=== PATIENT | male | born 1950 | race Caucasian/White ===

== ENCOUNTER → 2018-04-02 | Outpatient (CLI) | payer MEDICARE ==
[~2018-04-02] MED LIST: LIDOCAINE 1% MDV 20ML VIAL As Ordered; LIDOCAINE 2% MDV 20 ML VIAL As Ordered
[2018-04-02 14:10] LABS: INR 0.97
[2018-04-02 14:11] LABS: PARTIAL THROMBOPLASTIN TIME 45.5 SECONDS (25.4-37.6)
== END ==
LOC: M RADPRO 12:41
DX: R59.0 Localized enlarged lymph nodes (principal); C77.4 Secondary and unspecified malignant neoplasm of inguinal and lower limb lymph nodes; C34.10 Malignant neoplasm of upper lobe, unspecified bronchus or lung; Z79.82 Long term (current) use of aspirin; Z79.899 Other long term (current) drug therapy
CPT/HCPCS: 38505

== ENCOUNTER → 2018-04-14 | Outpatient (REF) | payer MEDICARE ==
[2018-04-14 11:27] LABS: INR 1.14; PROTHROMBIN TIME 14.8 SECONDS (12.1-14.4)
[2018-04-14 11:28] LABS: PARTIAL THROMBOPLASTIN TIME 44.8 SECONDS (25.4-37.6)
== END ==
LOC: M LAB REF 10:49
DX: C34.91 Malignant neoplasm of unspecified part of right bronchus or lung (principal); Z79.01 Long term (current) use of anticoagulants
CPT/HCPCS: 85610

== ENCOUNTER → 2018-04-22 | Outpatient (CLI) | payer MEDICARE ==
[~2018-04-22] MED LIST changes: -LIDOCAINE 1% MDV 20ML VIAL As Ordered; +ceFAZolin 1GM INJ (J0690 PER 500MG) As Ordered
== END | disposition home or self-care (01) ==
LOC: M IRPRO 10:51
DX: C34.90 Malignant neoplasm of unspecified part of unspecified bronchus or lung (principal)
CPT/HCPCS: 36561

== ENCOUNTER 2018-06-15 12:47 | Outpatient (CLI) | payer MEDICARE ==
[2018-06-15] MEDS: ACETAMINOPHEN TAB 650MG DOSE (2X325MG) PO (15:29)
[2018-06-15] MEDS: diphenhydrAMINE 25 MG CAP PO (15:29)
[2018-06-15] MEDS ORDERED: SODIUM CHLORIDE 0.9% INJ 10 ML SYR IV (16:45)
[2018-06-15 18:38] LABS: IMMEDIATE SPIN CROSSMATCH 1 2
[2018-06-15] MEDS: SODIUM CHLORIDE 0.9% INJ 10 ML SYR IV (21:16)
== END 2018-06-15 21:21 | disposition home or self-care (01) ==
LOC: M OPCLI4PV 12:47 → M MSPAV 13:04 → M OPCLI4PV 21:21
DX: D64.9 Anemia, unspecified (principal); C34.90 Malignant neoplasm of unspecified part of unspecified bronchus or lung
CPT/HCPCS: 36430

== ENCOUNTER 2018-07-06 11:55 | Outpatient (CLI) | payer MEDICARE, MEDICAID ==
[~2018-07-06 11:55] MED LIST changes: -LIDOCAINE 2% MDV 20 ML VIAL As Ordered; +SODIUM CHLORIDE 0.9% INJ 10 ML SYR IV; -ceFAZolin 1GM INJ (J0690 PER 500MG) As Ordered
[2018-07-06] MEDS: diphenhydrAMINE 25 MG CAP PO (13:01)
[2018-07-06] MEDS: ACETAMINOPHEN TAB 650MG DOSE (2X325MG) PO (13:01)
== END 2018-07-06 17:20 | disposition home or self-care (01) ==
LOC: M INFU 11:55
DX: D64.9 Anemia, unspecified (principal)
CPT/HCPCS: 36430

== ENCOUNTER 2018-07-27 12:44 | Outpatient (CLI) | payer MEDICARE ==
[2018-07-27] MEDS: SODIUM CHLORIDE 0.9% INJ 10 ML SYR IV (09:00)
[2018-07-27] MEDS ORDERED: diphenhydrAMINE 25 MG CAP As Ordered (13:05)
[2018-07-27] MEDS ORDERED: ACETAMINOPHEN TAB 650MG DOSE (2X325MG) As Ordered (13:06)
[2018-07-27] MEDS: diphenhydrAMINE 25 MG CAP PO (13:22)
[2018-07-27] MEDS: ACETAMINOPHEN TAB 650MG DOSE (2X325MG) PO (13:22)
== END 2018-07-27 17:15 | disposition home or self-care (01) ==
LOC: M INFU 12:44
DX: D64.9 Anemia, unspecified (principal)
CPT/HCPCS: 36430

== ENCOUNTER → 2018-08-17 | Outpatient (CLI) | payer MEDICAID, MEDICARE ==
[~2018-08-17] MED LIST changes: +ALBU83IN NEB; +AMLO10TA4 PO; +ASPI81TA85 PO; +BISO5TAB2 PO; +BISO5TAB5 PO; +FISH120016 PO; +FURO20TA2 PO; +LISI40TAB PO; +RANI1TAB6 PO; +SIMV20TA2 PO; +SODI1TAB6 PO; -SODIUM CHLORIDE 0.9% INJ 10 ML SYR IV; +VENTAER INH
--- NOTE | 2018-08-17 19:51 | REP ---
PET/CT: History: Restaging lung cancer. The patient has a history of metastatic small cell carcinoma with liver, bilateral adrenal, retroperitoneal, mesenteric and mediastinal lymphadenopathy with positive left inguinal lymph node biopsy. Soft tissue masses in the right middle and right lower lobes of the lungs. The patient on chemotherapy. Comparisons: Comparison CT chest March 27, 2018. No comparison PET-CT. TECHNIQUE: 57 minutes following the intravenous injection of a 7.9 mCi dose of F-18 FDG, three-dimensional PET scintigraphy is acquired from the skull base to the proximal thighs. Triplanar noncontrast CT scanning is acquired through the same anatomic range for attenuation correction, and image registration with scan parameters optimized to minimize radiation exposure to the patient. PET scintigraphy and CT datasets were fused and displayed on a workstation with multiplanar and projection display capability. PET/CT Findings: There is a hypermetabolic peribronchovascular nodule in the right lower lobe of the lung measuring 1.5 cm in diameter. Maximum standard uptake value in this is 10.1. There is some hypermetabolic pulmonary parenchymal opacity in the right lower lobe below this in the posterior lung gutter with maximum standard uptake value up to 6.4 in an infiltrative pattern, which may be postobstructive change. The right lung base is significantly improved. The bulky right hilar and mediastinal lymphadenopathy is markedly improved as well. No other abnormal hypermetabolic uptake is seen within the chest. There is some normal variant paraspinal skeletal muscle uptake. Some linear uptake in esophageal mucosa which is felt to be normal. There is slightly increased uptake in a residual cavitary nodule in the right upper lobe with maximum standard uptake value 2.0. This measures 1.7 cm. There is no abnormal hypermetabolic uptake in the adrenals. The previously noted adrenal nodules have improved. The masses in the pararenal fat are much improved and no longer hypermetabolic. No hypermetabolic peritoneal implant or inguinal crystal implant is seen. Impression: The associated CT findings are dramatically improved. There is residual hypermetabolic uptake in an infrahilar nodule in the right lower lobe and in some possibly postobstructive parenchymal opacity in the right posterior lung gutter. Borderline uptake is seen in a cavitary lesion in the right upper lobe. No other hypermetabolic uptake seen. Electronically Signed by Ariel Tavarez MD 08/17/2018 07:58 P
== END ==
LOC: M PLARAD 15:33
PROVIDERS: ATTEND Internal Medicine Medical Oncology
DX: C34.91 Malignant neoplasm of unspecified part of right bronchus or lung (principal)
CPT/HCPCS: 78815; A9552

== ENCOUNTER 2018-09-27 08:57 | Outpatient (RCR) | payer MEDICARE ==
[2018-06-15 09:21] LABS: HEMATOCRIT 21.7 % (37.0-51.0); LYMPH % 11.8 % (10.0-58.5); MEAN CORPUSCULAR HEMOGLOBIN 29.2 pg (26.0-32.0); MEAN CORPUSCULAR HGB CONC 32.3 g/dl (31.0-36.0); MEAN CORPUSCULAR VOLUME 90.3 fl (80.0-97.0); NEUTROPHILS # 11.8 10^3/uL (2.0-7.8); NEUTROPHILS % 77.8 % (37.0-92.0); RED BLOOD COUNT 2.4 10^6/uL (4.2-6.3); WHITE BLOOD COUNT 15.2 10^3/uL (4.1-10.9)
[2018-06-15 09:42] LABS: ALBUMIN 3.8 GM/DL (3.5-5.2); BLOOD UREA NITROGEN 21 MG/DL (6-20); CALCIUM LEVEL 7.7 MG/DL (8.5-10.2); CARBON DIOXIDE LEVEL 26.6 MEQ/L (23-31); CHLORIDE LEVEL 97 MMOL/L (98-107); CREATININE FOR GFR 1.46 MG/DL (0.90-1.30); GLOMERULAR FILTRATION RATE 51.3 (>49); GLUCOSE, FASTING 123 MG/DL (70-105); POTASSIUM SERUM 3.4 MMOL/L (3.5-5.1); SODIUM LEVEL 133.7 MMOL/L (136-145); TOTAL PROTEIN 7.2 GM/DL (6.4-8.3)
[2018-06-15 09:47] VITALS: BP 96/68
[2018-06-16 08:35] VITALS: BP 133/71
[2018-06-16 09:50] LABS: PERCENT SATURATION 25.3 % (19.7-50.0)
--- NOTE | 2018-06-16 16:15 | MEDONC ---
REVIEW PATIENT FOLLOWUP DATE OF SERVICE: 06/15/2018 DIAGNOSIS: Extensive stage small cell lung cancer. TREATMENT SUMMARY: 1. Metastatic small cell carcinoma on a left inguinal lymph node biopsy 03/[address] scan 02/2018 showing liver metastases, bilateral adrenal gland metastases, retroperitoneal lymphadenopathy, and mesenteric lymphadenopathy as well as mediastinal lymphadenopathy, and soft tissue masses in the right middle and right lower lung lobes. Started palliative carboplatin/etoposide chemotherapy 03/2018. 2. CT scan from 05/2018 showing a positive response. HISTORY OF PRESENT ILLNESS: Mr. Trevino has so far completed three cycles of carboplatin/etoposide chemotherapy today. He reports that he has been feeling slightly tired lately. However, he has had a good appetite. His weight has been going up and down, but mostly stable. No fevers. No night sweats. No headaches. No dizziness. No vision changes. No chest pain. No shortness of breath. No cough. No nausea. No vomiting. No abdominal pains. No bone pains. No diarrhea. He has had constipation after chemotherapy for which he uses a stool softener. He has had mild easy bruising likely secondary to aspirin use. He reports no rectal bleeding. No black stools. No urinary bleeding. No nose bleeds. No mucositis and no significant lower extremity edema. On physical exam, he weighed 94.9 kg. His blood pressure was slightly low at 96/68. Heart rate 99 per minute. O2 saturation 98% on room air. Temperature 98 degrees Fahrenheit. He had pinkish conjunctivae, anicteric sclera. No oral mucosal lesions. No palpable cervical nodes. Lungs were clear. No rales, no rhonchi, no wheeze. S1, S2 regular. Abdomen was soft, nontender. No guarding. Positive bowel sounds. Extremities - no calf swelling, no calf tenderness, and no pedal edema. IMPRESSION AND PLAN: Mr. Trevino's CBC today came back with a significantly low hemoglobin level of 7 g/dL. I recommended a blood transfusion to which he agreed. We will also obtain iron studies. I discussed that his hypotension may be related to anemia. I have advised him to hold off on furosemide. He is to return tomorrow for his cycle #4 of carboplatin/etoposide chemotherapy. I have advised him to hold amlodipine and lisinopril in the morning. We will check his blood pressure tomorrow morning and may hold amlodipine and lisinopril if his blood pressure continues to be on the low side. In the meantime, he will be scheduled for cycle #4 tomorrow until Thursday and cycle #5 in three weeks. I discussed with Mr. Trevino and his that his most recent imaging studies showed a positive response to chemotherapy and he will therefore continue with chemotherapy. We would aim to give him a total of 6 cycles of chemotherapy. Electronically Signed by Chantale Gamez MD, FACP 06/16/2018 06:32 P DD: Chantale Gamez MD, FACP 06/15/2018 06:26 P DT: maritime guard 06/16/2018 03:58 P CC: Helio Mark MD
[2018-06-17 08:18] VITALS: BP 111/64
[2018-06-18 08:10] VITALS: BP 99/62
[2018-06-18] MEDS: SODIUM CHLORIDE 0.9% INJ 10 ML SYR IV PRN (10:33)
[2018-07-05 12:45] VITALS: BP 99/66
[2018-07-05 13:07] LABS: HEMATOCRIT 22.3 % (37.0-51.0); HEMOGLOBIN 7.3 g/dl (12.0-18.0); LYMPH % 14.2 % (10.0-58.5); MEAN CORPUSCULAR HEMOGLOBIN 31.2 pg (26.0-32.0); MEAN CORPUSCULAR HGB CONC 32.7 g/dl (31.0-36.0); MEAN CORPUSCULAR VOLUME 95.5 fl (80.0-97.0); NEUTROPHILS # 11.2 10^3/uL (2.0-7.8); NEUTROPHILS % 77.9 % (37.0-92.0); RED BLOOD COUNT 2.34 10^6/uL (4.2-6.3); WHITE BLOOD COUNT 14.4 10^3/uL (4.1-10.9)
[2018-07-05 13:15] LABS: ALBUMIN 3.9 GM/DL (3.5-5.2); BLOOD UREA NITROGEN 18 MG/DL (6-20); CALCIUM LEVEL 7.9 MG/DL (8.5-10.2); CARBON DIOXIDE LEVEL 26 MEQ/L (23-31); CHLORIDE LEVEL 100 MMOL/L (98-107); CREATININE FOR GFR 1.36 MG/DL (0.90-1.30); GLOMERULAR FILTRATION RATE 55.6 (>49); GLUCOSE, FASTING 129 MG/DL (70-105); POTASSIUM SERUM 3.6 MMOL/L (3.5-5.1); SODIUM LEVEL 135 MMOL/L (136-145)
[2018-07-05] MEDS: SODIUM CHLORIDE 0.9% INJ 10 ML SYR IV PRN (13:54)
[2018-07-05 14:44] LABS: PERCENT SATURATION 30.6 % (19.7-50.0)
[2018-07-07 08:39] LABS: HEMATOCRIT 29.4 % (37.0-51.0); HEMOGLOBIN 9.6 g/dl (12.0-18.0); LYMPH % 14.5 % (10.0-58.5); MEAN CORPUSCULAR HEMOGLOBIN 31.1 pg (26.0-32.0); MEAN CORPUSCULAR HGB CONC 32.7 g/dl (31.0-36.0); MEAN CORPUSCULAR VOLUME 95.2 fl (80.0-97.0); NEUTROPHILS # 9.4 10^3/uL (2.0-7.8); NEUTROPHILS % 76.7 % (37.0-92.0); RED BLOOD COUNT 3.09 10^6/uL (4.2-6.3); WHITE BLOOD COUNT 12.3 10^3/uL (4.1-10.9)
[2018-07-07 08:50] VITALS: BP 113/72
--- NOTE | 2018-07-07 11:00 | MEDONC ---
REVIEW PATIENT FOLLOWUP DATE OF SERVICE: 07/05/2018 DIAGNOSIS: Extensive stage small cell lung cancer. TREATMENT SUMMARY: 1. Metastatic small cell carcinoma on a left inguinal lymph node biopsy 03/[address] scan 02/2018 showing liver metastases, bilateral adrenal gland metastases, retroperitoneal lymphadenopathy, and mesenteric lymphadenopathy as well as mediastinal lymphadenopathy, and soft tissue masses in the right middle and right lower lung lobes. Started palliative carboplatin/etoposide chemotherapy 03/2018. 2. CT scan from 05/2018 showing a positive response. HISTORY OF PRESENT ILLNESS: Mr. Trevino has so far received three cycles of carboplatin/etoposide chemotherapy and is scheduled to receive his fourth cycle today. He reports a good appetite. He has been gaining weight. No fevers. No night sweats. He had an improvement in his energy levels following a blood transfusion 3 weeks ago and so far his energy levels have stayed up and he did not feel significantly tired today. No headaches. No dizziness. No vision changes. No chest pain. No shortness of breath. He reports a cough with clear phlegm and he also reports that he has had slight mild cold symptoms today with his nose running. He has had no nausea. No vomiting. No abdominal pains. No bone pains. No diarrhea. He has had constipation for which he uses MiraLAX which has been helpful. No urinary problems. No easy bruising. No rectal bleeding. No urinary bleeding. No nose bleeds. No mucositis and no edema. On physical exam, blood pressure 99/66. Pulse oxymetry 98% on room air. Temperature 96.4. Heart rate 95 per minute. He had pinkish conjunctivae, anicteric sclerae. No oral mucosal lesions. No palpable cervical nodes. No oral mucositis. Lungs were clear. No rales, rhonchi, or wheeze. S1, S2 regular. No murmur. No gallop. Abdomen was soft, nontender. No guarding. No hepatosplenomegaly. Positive bowel sounds. Extremities-No calf swelling, no calf tenderness, and no pedal edema. IMPRESSION AND PLAN: Mr. Trevino was scheduled for his fourth cycle of chemotherapy today, but his CBC showed a significantly low hemoglobin level of 7.3 g/dL. We will arrange for him to have a blood transfusion tomorrow with a plan to have his chemotherapy on Thursday. We did obtain work-up for anemia, with iron studies showed normal iron indices. He had a mild reticulocytosis at 3.3%, but otherwise no other significant issues. He had a negative antibody screen. On his next visit we will obtain a haptoglobin level. Since he has significant anemia I will be decreasing his chemotherapy dose as the anemia could be from chemotherapy. We had initially planned for him to have blood transfusion with Dr. Mark in [place], but in the end Mr. Trevino decided to have his blood transfusion in [facility] and we have arranged for him to receive this tomorrow. He will be scheduled to receive his sixth cycle of chemotherapy in 3 weeks with a followup CT scan after the sixth cycle of chemotherapy. Electronically Signed by Chantale Gamez MD, FACP 07/09/2018 04:23 P DD: Chantale Gamez MD, FACP 07/05/2018 06:50 P DT: will 07/07/2018 10:23 A CC: MD Jennifer Fofana, EKTA
[2018-07-07] MEDS: SODIUM CHLORIDE 0.9% INJ 10 ML SYR IV PRN (12:15)
[2018-07-08 13:16] VITALS: BP 129/72
[2018-07-08] MEDS: SODIUM CHLORIDE 0.9% INJ 10 ML SYR IV PRN (15:07)
[2018-07-09] MEDS: SODIUM CHLORIDE 0.9% INJ 10 ML SYR IV PRN (14:50)
[2018-07-26 08:19] LABS: HEMATOCRIT 24.1 % (37.0-51.0); HEMOGLOBIN 7.9 g/dl (12.0-18.0); LYMPH % 10.5 % (10.0-58.5); MEAN CORPUSCULAR HEMOGLOBIN 32.4 pg (26.0-32.0); MEAN CORPUSCULAR HGB CONC 32.8 g/dl (31.0-36.0); MEAN CORPUSCULAR VOLUME 98.8 fl (80.0-97.0); NEUTROPHILS # 18.8 10^3/uL (2.0-7.8); NEUTROPHILS % 81.3 % (37.0-92.0); RED BLOOD COUNT 2.44 10^6/uL (4.2-6.3); WHITE BLOOD COUNT 23.1 10^3/uL (4.1-10.9)
[2018-07-26 08:38] LABS: ALBUMIN 3.9 GM/DL (3.5-5.2); BLOOD UREA NITROGEN 25 MG/DL (6-20); CALCIUM LEVEL 8.3 MG/DL (8.5-10.2); CARBON DIOXIDE LEVEL 24 MEQ/L (23-31); CHLORIDE LEVEL 99 MMOL/L (98-107); CREATININE FOR GFR 1.58 MG/DL (0.90-1.30); GLOMERULAR FILTRATION RATE 46.8 (>49); GLUCOSE, FASTING 125 MG/DL (70-105); POTASSIUM SERUM 3.8 MMOL/L (3.5-5.1); SODIUM LEVEL 133 MMOL/L (136-145); TOTAL PROTEIN 7.1 GM/DL (6.4-8.3)
[2018-07-26 08:49] VITALS: BP 96/65
[2018-07-26 10:32] LABS: TOTAL PROTEIN 7.3 GM/DL (6.4-8.2)
--- NOTE | 2018-07-27 09:43 | MEDONC ---
REVIEW PATIENT FOLLOWUP DATE OF SERVICE: 07/26/2018 DIAGNOSIS: Extensive stage small cell lung cancer. TREATMENT SUMMARY: 1. Metastatic small cell carcinoma on a left inguinal lymph node biopsy 03/[address] scan 02/2018 showing liver metastases, bilateral adrenal gland metastases, retroperitoneal lymphadenopathy, and mesenteric lymphadenopathy as well as mediastinal lymphadenopathy, and soft tissue masses in the right middle and right lower lung lobes. Started palliative carboplatin/etoposide chemotherapy 03/2018. 2. CT scan from 05/2018 showing a positive response. HISTORY OF PRESENT ILLNESS: Mr. Trevino reports feeling reasonably well. He reports a good appetite. His weight has been stable. No fevers. He has a slight cold with some cough. No shortness of breath. No headaches. No dizziness. No vision changes. No chest pain. He has been slightly tired but not too tired. He also has had a cough with mild phlegm. No nausea. No vomiting. No abdominal pains. No bone pains. He has constipation, for which he takes MiraLAX. Subsequent to taking MiraLAX, he sometimes develops loose stools, but this usually is only of one episode and with no further episodes. No urinary problems. No easy bruising. No rectal bleeding. No nosebleeds. No black stools. No mucositis and no peripheral edema. On physical exam, temperature 97.4. Blood pressure 96/65. Heart rate 99 per minute. O2 saturation 99% in room air. He had pinkish conjunctivae, anicteric sclerae. No oral mucosal lesions. No palpable cervical lymph nodes. Lungs fair entry. No rales, no rhonchi, no wheeze. S1, S2 regular. No murmur. No gallop. Abdomen was soft, nontender. No guarding. Extremities -- No calf swelling, no calf tenderness, and no pedal edema. IMPRESSION AND PLAN: Mr. Trevino is scheduled for his sixth cycle of chemotherapy on Thursday. His CBC today came back with significant anemia, hemoglobin level 7.9. I recommended a blood transfusion, as this will likely go down further with chemotherapy. We have added anemia workup testing to his blood test today. A haptoglobin, as well as soluble transferrin receptor test, is pending as of this time. He is scheduled for a followup CT scan after completing the sixth cycle of chemotherapy. Followup appointment after CT scan. Electronically Signed by Chantale Gamez MD, FACP 08/15/2018 02:52 P DD: Chantale Gamez MD, FACP 07/26/2018 06:11 P DT: aml 07/27/2018 09:34 A CC: Helio Mark MD
[2018-07-27 10:20] LABS: ALBUMIN 3.71 GM/DL (3.29-5.55); ALBUMIN % 50.8 % (55.8-66.1); ALPHA-1-GLOBULIN % 6.6 % (2.9-4.9); ALPHA-1-GLOBULINS 0.48 GM/DL (0.17-0.41); ALPHA-2-GLOBULINS % 15.1 % (7.1-11.8); BETA-1-GLOBULINS 0.47 GM/DL (0.28-0.60); BETA-1-GLOBULINS % 6.4 % (4.7-7.2); BETA-2-GLOBULINS 0.49 GM/DL (0.19-0.55); BETA-2-GLOBULINS % 6.7 % (3.2-6.5); GAMMA GLOBULIN % 14.4 % (11.1-18.8)
[2018-07-27 10:21] LABS: GAMMA GLOBULINS 1.05 GM/DL (0.65-1.58)
[2018-07-28 00:50] LABS: SOLUBLE TRANSFERRIN RECEPTOR 12.3 nmol/L (12.2-27.3)
[2018-08-04 08:39] LABS: HEMOGLOBIN 8.8 g/dl (12.0-18.0); LYMPH % 13.9 % (10.0-58.5); MEAN CORPUSCULAR HEMOGLOBIN 31.9 pg (26.0-32.0); MEAN CORPUSCULAR HGB CONC 32.6 g/dl (31.0-36.0); MEAN CORPUSCULAR VOLUME 97.8 fl (80.0-97.0); NEUTROPHILS # 8.4 10^3/uL (2.0-7.8); NEUTROPHILS % 72.5 % (37.0-92.0); RED BLOOD COUNT 2.76 10^6/uL (4.2-6.3); WHITE BLOOD COUNT 11.6 10^3/uL (4.1-10.9)
[2018-08-04 08:59] VITALS: BP 91/56
[2018-08-04 09:00] LABS: ALBUMIN 3.4 GM/DL (3.5-5.2); BLOOD UREA NITROGEN 17 MG/DL (6-20); CALCIUM LEVEL 8.6 MG/DL (8.5-10.2); CARBON DIOXIDE LEVEL 25 MEQ/L (23-31); CHLORIDE LEVEL 95 MMOL/L (98-107); CREATININE FOR GFR 1.24 MG/DL (0.90-1.30); GLOMERULAR FILTRATION RATE > 60.0 (>49); GLUCOSE, FASTING 121 MG/DL (70-105); POTASSIUM SERUM 3.5 MMOL/L (3.5-5.1); SODIUM LEVEL 128 MMOL/L (136-145); TOTAL PROTEIN 7.3 GM/DL (6.4-8.3)
[2018-08-04] MEDS: PALONOSETRON 250 MCG IV IV ONE ×2 (09:25→09:44)
[2018-08-04] MEDS: dexameTHASONE 12 MG IV IV ONE ×2 (09:25→09:44)
[2018-08-06 13:12] VITALS: BP 107/58
[2018-08-09 13:47] VITALS: BP 105/65
[2018-08-09 14:07] LABS: HEMOGLOBIN 9.6 g/dl (12.0-18.0); LYMPH % 23.2 % (10.0-58.5); MEAN CORPUSCULAR HEMOGLOBIN 31.5 pg (26.0-32.0); MEAN CORPUSCULAR VOLUME 98.2 fl (80.0-97.0); NEUTROPHILS % 73.2 % (37.0-92.0); RED BLOOD COUNT 3.05 10^6/uL (4.2-6.3); WHITE BLOOD COUNT 6.8 10^3/uL (4.1-10.9)
[2018-08-09 14:15] LABS: ALBUMIN 3.8 GM/DL (3.5-5.2); BLOOD UREA NITROGEN 27 MG/DL (6-20); CARBON DIOXIDE LEVEL 25 MEQ/L (23-31); CHLORIDE LEVEL 97 MMOL/L (98-107); CREATININE FOR GFR 1.18 MG/DL (0.90-1.30); GLOMERULAR FILTRATION RATE > 60.0 (>49); GLUCOSE, FASTING 113 MG/DL (70-105); POTASSIUM SERUM 4.2 MMOL/L (3.5-5.1); SODIUM LEVEL 130 MMOL/L (136-145); TOTAL PROTEIN 7.4 GM/DL (6.4-8.3)
[2018-08-10 13:58] VITALS: BP 106/73
--- NOTE | 2018-08-11 13:20 | MEDONC ---
REVIEW PATIENT FOLLOWUP DATE OF SERVICE: 08/10/2018 DIAGNOSIS: Extensive stage small cell lung cancer. TREATMENT SUMMARY: 1. Metastatic small cell carcinoma on a left inguinal lymph node biopsy 03/[address] scan 02/2018 showing liver metastases, bilateral adrenal gland metastases, retroperitoneal lymphadenopathy, and mesenteric lymphadenopathy as well as mediastinal lymphadenopathy, and soft tissue masses in the right middle and right lower lung lobes. Started palliative carboplatin/etoposide chemotherapy 03/2018. 2. CT scan from 05/2018 showing a positive response. HISTORY OF PRESENT ILLNESS: Mr. Trevino completed the sixth cycle of carboplatin/etoposide chemotherapy for metastatic small cell lung cancer yesterday. He reports a good appetite. He has had alopecia since starting chemotherapy. He reports no fevers. He has been slightly tired lately, but not unduly so. No headaches. No dizziness. No changes in his eyesight. No chest pain. No shortness of breath. No nausea. No vomiting. No abdominal pains. No bone pains. He reports that once in a while with chemotherapy, he has diarrhea. His last episode happened last week when he had two episodes of diarrhea a day lasting two days. He uses Kaopectate for diarrhea. He reports that he has had nasal congestion and cough with clear phlegm. No hemoptysis. He has been taking Coricidin for his cough and cold, and he has been feeling better with this. He reports that he is ambulatory with a cane and has been using a cane since he was first diagnosed with lung cancer. No rectal bleeding. No epistaxis. No mucositis. No peripheral edema. On physical exam, he weighed 92.4 kg. Temperature 96.9 degrees Fahrenheit. Heart rate 86 per minute. Blood pressure 106/73. Oxygen saturation 99% on room air. He had pinkish conjunctiva, anicteric sclerae. No oral mucosal lesions. No palpable cervical lymph nodes. Lungs fair air entry. No rales, no rhonchi, no wheeze. S1 and S2 regular. Abdomen was soft, nontender. No guarding. Extremities - no calf swelling, no calf tenderness, and no pedal edema. IMPRESSION/PLAN: Mr. Trevino completed first line treatment with carboplatin/etoposide chemotherapy for small cell lung cancer. He had a CT scan last week which showed a right lower lobe mass versus consolidation. This also showed an increase in the size of a left adrenal lesion. However, a left sided pleural effusion had further decreased in size and mediastinum soft tissue density thickening had also decreased. I discussed these results with him. It is unclear whether or not he is progressing versus improving in terms of his metastatic lung cancer. I suggested a PET scan to assess disease progression objectively. If this should show disease progression, we will start him on second line treatment. I discussed that options for second line treatment include topotecan chemotherapy or immunotherapy with nivolumab. He has agreed to go for a PET scan and we will see him after the PET scan. Electronically Signed by Chantale Gamez MD, FACP 08/15/2018 03:01 P DD: Chantale Gamez MD, FACP 08/10/2018 05:32 P DT: madai 08/11/2018 12:58 P CC: Helio Mark MD
[2018-08-30 09:56] VITALS: BP 108/71
[2018-08-30 10:09] LABS: HEMATOCRIT 26.9 % (42.0-52.0); HEMOGLOBIN 8.7 g/dl (13.5-17.5); LYMPH % 26.2 % (24.0-44.0); MEAN CORPUSCULAR HEMOGLOBIN 33.2 pg (27.0-33.0); MEAN CORPUSCULAR HGB CONC 32.3 g/dl (32.0-36.5); MEAN CORPUSCULAR VOLUME 102.6 fl (80.0-96.0); NEUTROPHILS # 4.1 10^3/uL (1.8-7.7); NEUTROPHILS % 64.3 % (36.0-66.0); RED BLOOD COUNT 2.62 10^6/uL (4.30-6.10); WHITE BLOOD COUNT 6.3 10^3/uL (4.0-10.0)
[2018-08-30 10:51] LABS: BLOOD UREA NITROGEN 24 MG/DL (6-20); CALCIUM LEVEL 8.5 MG/DL (8.5-10.2); CARBON DIOXIDE LEVEL 24 MEQ/L (23-31); CHLORIDE LEVEL 99 MMOL/L (98-107); CREATININE FOR GFR 1.29 MG/DL (0.90-1.30); GLOMERULAR FILTRATION RATE 59.1 (>49); GLUCOSE, FASTING 111 MG/DL (70-105); POTASSIUM SERUM 3.7 MMOL/L (3.5-5.1); SODIUM LEVEL 133 MMOL/L (136-145); TOTAL PROTEIN 7.3 GM/DL (6.4-8.3)
[2018-08-30 11:03] LABS: FREE T4 0.97 NG/DL (0.76-1.46); THYROID STIMULATING HORMONE 0.851 uIU/ML (0.358-3.740)
--- NOTE | 2018-09-01 14:36 | MEDONC ---
REVIEW PATIENT FOLLOWUP: DATE OF SERVICE: 08/30/2018 DIAGNOSIS: Extensive stage small cell lung cancer. TREATMENT SUMMARY: 1. Metastatic small cell carcinoma on a left inguinal lymph node biopsy 03/[address] scan 02/2018 showing liver metastases, bilateral adrenal gland metastases, retroperitoneal lymphadenopathy, and mesenteric lymphadenopathy as well as mediastinal lymphadenopathy, and soft tissue masses in the right middle and right lower lung lobes. Started palliative carboplatin/etoposide chemotherapy 03/2018. 2. CT scan from 05/2018 showed a positive response. HISTORY OF PRESENT ILLNESS: Mr. Trevino reports a good appetite. He has been gaining weight. He has had good energy levels. No headaches. No dizziness. He is currently suffering from cold symptoms with nasal congestion and cough with clear phlegm. No hemoptysis. No fevers. Otherwise, he reported no other symptoms. On physical exam, he weigh 97.1 kg. Temperature 97 degrees Fahrenheit. Heart rate 76 per minute. Blood pressure 108/71. Pulse oximetry 98% in room air. He had pinkish conjunctivae, anicteric sclerae. No oral mucosal lesions. No palpable cervical lymph nodes. Lungs with fair air entry. No rales, rhonchi, or wheeze. S1, S2 regular. Abdomen was soft, nontender. Extremities - no calf swelling, no calf tenderness, and no pedal edema. IMPRESSION AND PLAN: Mr. Trevino had a PET scan recently to assess for disease progression. This showed significant improvement in his chest findings. Specifically, the PET scan showed dramatic improvement with residual hypermetabolic uptake in an infrahilar nodule in the right lower lobe measuring 1.5 cm in diameter. There was also note of a lung opacity in the right posterior lung possibly post obstructive. I discussed these results with Mr. Trevino and his . I discussed that since the PET scan did not show significant disease progression, but did show a significant improvement in this chest findings, it would be reasonable for him to take a break from chemotherapy. He has agreed to this. Will arrange for him to have a followup CT scan in [address] scan should show disease progression, he should be considered for second line treatment such as with nivolumab immunotherapy or topotecan chemotherapy. Electronically Signed by Chantale Gamez MD, FACP 09/01/2018 02:51 P DD: Chantale Gamez MD, FACP 08/30/2018 04:38 P DT: justice 09/01/2018 02:27 P CC: Helio Mark MD
[~2018-09-27] VITALS: Ht 172.7 cm; Wt 95.1 kg
[~2018-09-27 08:57] MED LIST changes: -AMLO10TA4 PO; +AMLO10TA5 PO; +ETOPOSIDE IV ONE; +FOSAPREPITANT PERIPHERAL LINE 30 MIN INFUSION (PREMIX) IV ONE; +FOSAPREPITANT PERIPHERAL LINE 30 MIN INFUSION IV ONE; +LISI40TA PO; -LISI40TAB PO; +NS IV ONE; +PALONOSETRON 250 MCG IV IV ONE; +PEGFILGRASTIM 6MG/0.6ML ONPRO KIT (J2505 PER 6MG) (FOR ONCOLOGY) SC ONE; +PROCHLORPERAZINE 5 MG TAB (S0183) PO ONE; +SODIUM CHLORIDE 0.9% INJ 10 ML SYR IV PRN; +SODIUM CHLORIDE 0.9% INJ 10 ML SYR IV SCH; +[UNRECOGNIZED DRUG - OTHER] IV ONE; +[UNRECOGNIZED DRUG - OTHER] IV ONE; +dexameTHASONE 12 MG IV IV ONE
[2018-09-28] MEDS ORDERED: FURO20TA2 PO (12:26)
--- NOTE | 2018-10-18 17:15 | MEDONCTEEN ---
Telephone Encounter Patient's called VIET Wheatley this morning that Mr. Trevino had to be taken to the ER Thursday for dehydration and they did a CT Brain, she will bring in the disc. Ms Wheatley told , if patient gets weak again to bring him here for IV fluids. Will ask Ms Wheatley to obtain the report on the CT Brain done at the Outside Facility, [facility], does the patient have brain mets? He has been off chemo since early August, and should not be getting dehydrated unless there is something else going on. (Ryan NEW) [facility]. CC: Aisha Wheatley. JESSICA FUENTES MD Oct 18, 2018 17:15
--- NOTE | 2018-10-19 17:36 | MEDONCTEEN ---
Date/Time of Encounter Date of Encounter: Oct 19, 2018 Telephone Encounter Patient's had called yesterday that patient was very weak and they had taken him to [facility] and they did a brain CT and she would drop off the Disc for our radiologists to read and would we call her back. A few days ago Chemo RNs had said patient was off balance and as a sidewalk concult asked me what to do. i have never met Mr. Trevino, one of the other physi cians cares for him, who is not here, so i suggested MRI Brain and a PET MARK. Today called again saying what did we think of the CT head from [facility], since she and the 4 children were leaning towards Hospice. Asked for the report again on the CT, then was told, Radiologist would not read it without an order, hence quickly signed an order for it to be read. Afternoon came, no report, closing time came, no report, waited till 5:15 pm, Mrs. Bowen personally walked over twice to Radiology to get it read. Spoke to Manny at ext. [phone], still nothing. So finally asked Shyanne front desl Staff to call [facility] Radiology and get their report on the head CT which they promptly FAXed over. Called the , went over the CT head report, explained that Small cell lung cancer responds well to Radiation and chemo. Even whole brain mets can respond to WBRT. We would add steroids to prevent swelling on the Brain and since the thought patient was also acting confused, would add KEPPRA in case patient was having seizures. Also explained that if the patient was confused then she as the caregiver and medical POA would have to make major health decisions. SUggested that at least bring patient over to the Office tomorrow and we will evaluate him, offered IV Fluids, since patient has not been eating or drinking and we would respect whatever decision she made. said she would try to bring him and she would run all of this by her 4 kids and then let us know. We will give a "heads up" to Ms Aisha Wheatley that patient may come tomorrow and will probably require labs and IV fluids. Ryan NEW. ([facility].) JESSICA FUENTES MD Oct 19, 2018 17:36
== END 2018-09-27 09:24 | disposition home or self-care (01) ==
LOC: M ONCM 08:57
PROVIDERS: ATTEND Internal Medicine Hematology & Oncology
DX: C34.91 Malignant neoplasm of unspecified part of right bronchus or lung (principal); C77.4 Secondary and unspecified malignant neoplasm of inguinal and lower limb lymph nodes; D61.810 Antineoplastic chemotherapy induced pancytopenia; Z79.899 Other long term (current) drug therapy; D64.9 Anemia, unspecified
CPT/HCPCS: 36415; 36591; 80053; 82728; 83010; 83520; 83550; 83615; 84165; 84439; 84443; 85027; 85046; 86850; 86900; 86901; 86920; 96367; 96375; 96377; 96413; 96417; 96523; G0463; J1100; J1453; J1642; J2469; J2505; J9045; J9181; P9016

== ENCOUNTER → 2018-10-19 | Outpatient (CLI) | payer MEDICARE ==
[~2018-10-19] MED LIST changes: -ETOPOSIDE IV ONE; -FOSAPREPITANT PERIPHERAL LINE 30 MIN INFUSION (PREMIX) IV ONE; -FOSAPREPITANT PERIPHERAL LINE 30 MIN INFUSION IV ONE; -NS IV ONE; -PALONOSETRON 250 MCG IV IV ONE; -PEGFILGRASTIM 6MG/0.6ML ONPRO KIT (J2505 PER 6MG) (FOR ONCOLOGY) SC ONE; -PROCHLORPERAZINE 5 MG TAB (S0183) PO ONE; -SODIUM CHLORIDE 0.9% INJ 10 ML SYR IV PRN; -SODIUM CHLORIDE 0.9% INJ 10 ML SYR IV SCH; -[UNRECOGNIZED DRUG - OTHER] IV ONE; -[UNRECOGNIZED DRUG - OTHER] IV ONE; -dexameTHASONE 12 MG IV IV ONE
--- NOTE | 2018-10-20 15:08 | REP ---
CT of the brain without IV contrast outside films from [facility] : There is a patient medical history of metastatic small cell carcinoma. Comparison is the CT of the brain 03/26 2018 also from [facility]. There are multiple rounded nodular densities throughout the deep white matter bilaterally as an interval change compatible with multiple brain metastases. MRI follow-up is recommended. There is no hemorrhage, mass effect or midline shift. The ventricles and sulci are enlarged compatible with diffuse volume loss. However, the ventricles appear larger on the study today. The sulci are similar appearance. Therefore, the possibility of ensuing hydrocephalus is raised. The cortical stripe is unremarkable. There is no hemorrhage. The visualized paranasal sinuses demonstrate polyps versus cysts in the left maxillary sinus. Impression: Probable multiple brain metastases. Recommend follow-up MRI. Possible ensuing hydrocephalus as discussed. The left maxillary sinus polyps/cysts. Electronically Signed by Ilir Franklin MD 10/19/2018 07:20 P
== END ==
LOC: M RAD 17:00
PROVIDERS: ATTEND Internal Medicine Hematology & Oncology
DX: C79.31 Secondary malignant neoplasm of brain (principal)